=== PATIENT | male | born 1990 | race Caucasian/White ===

== ENCOUNTER 2022-04-24 15:43 | Emergency (ER) | payer BC, MEDICAID ==
[~2022-04-24] VITALS: Ht 177.8 cm; Wt 113.0 kg
[2022-04-24 17:49] VITALS: BP 142/80
== END 2022-04-24 17:50 | disposition home or self-care (01) ==
LOC: ER 15:43
DX: F25.0 Schizoaffective disorder, bipolar type (principal); F17.210 Nicotine dependence, cigarettes, uncomplicated
CPT/HCPCS: 99283

== ENCOUNTER 2022-04-24 18:10 | Emergency (ER) | payer MEDICAID ==
[~2022-04-24] VITALS: Ht 177.8 cm; Wt 136.0 kg
[2022-04-24] MEDS ORDERED: LORAZEPAM 1MG TABLET PO ONE (19:00)
[2022-04-24] MEDS ORDERED: OLANZAPINE 5MG TABLET ODT PO ONE (19:00)
[2022-04-24 19:20] LABS: BASOPHILS % 0.7 % (0.0-2.0); EOSINOPHILS % 3.3 % (0.0-5.0); HEMATOCRIT. 43.8 % (42.0-52.0); HEMOGLOBIN. 14.9 g/dL (14.0-18.0); LYMPHOCYTES % 25.8 % (20.0-50.0); MEAN CORPUSCULAR HEMOGLOBIN 28.6 pg (28.0-32.0); MEAN CORPUSCULAR VOLUME 84.2 fL (80.0-94.0); MEAN PLATELET VOLUME 9.7 fl (7.4-10.4); MONOCYTES % 10.3 % (2.0-8.0); NEUTROPHILS % 59.9 % (40.0-76.0); PLATELET 221 x1000/uL (130-400); RED BLOOD CELL COUNT 5.21 mill/uL (4.7-6.1); RED CELL DISTRIBUTION WIDTH 15.4 % (11.6-14.6)
[2022-04-24 19:48] LABS: CLARITY URINE CLEAR (CLEAR); COLOR URINE YELLOW (YELLOW); KETONES URINE TRACE (NEGATIVE); LEUKOCYTE ESTERASE URINE NEGATIVE (NEGATIVE); NITRITE URINE NEGATIVE (NEGATIVE); OCCULT BLOOD URINE NEGATIVE (NEGATIVE); PH URINE 5.5 (4.5-8.0); PROTEIN URINE NEGATIVE (NEGATIVE); SPECIFIC GRAVITY URINE 1.028 (1.005-1.030)
[2022-04-24 19:48] LABS: CHLORIDE 111 mEq/L (98-107)
[2022-04-24 19:59] LABS: ETHANOL BLOOD < 10 mg/dL
[2022-04-24] MEDS ORDERED: DIPHENHYDRAMINE 50MG/ML VIAL IM ONE (20:00)
[2022-04-24] MEDS ORDERED: LORAZEPAM 2MG/ML CPJ IM ONE (20:00)
[2022-04-24 20:11] LABS: *AMPHETAMINES SCREEN URINE NEGATIVE (NEGATIVE); *BARBITURATES SCREEN URINE NEGATIVE (NEGATIVE); *BENZODIAZEPINES SCREEN URINE NEGATIVE (NEGATIVE); *COCAINE SCREEN URINE NEGATIVE (NEGATIVE); CANNABINOID URINE SCREEN NEGATIVE (NEGATIVE); METHADONE URINE SCREEN NEGATIVE (NEGATIVE); OPIATES URINE SCREEN NEGATIVE (NEGATIVE); PHENCYCLIDINE URINE SCREEN NEGATIVE (NEGATIVE)
[2022-04-24] MEDS ORDERED: ZIPRASIDONE MESYLATE 20MG/VIAL IM ONE (23:30)
[2022-04-25] MEDS: ARIPIPRAZOLE 5MG TABLET PO SCH (10:30)
[2022-04-25] MEDS: BUPROPION HCL 150MG TABLET XL 24HR PO SCH (10:30)
[2022-04-25] MEDS: DIVALPROEX SODIUM 500MG DR TABLET PO SCH ×2 (10:30→20:43)
[2022-04-25] MEDS ORDERED: LORAZEPAM 1MG TABLET PO ONE (11:15)
[2022-04-25] MEDS ORDERED: LORAZEPAM 2MG/ML CPJ IM ONE (20:30)
[2022-04-26] MEDS ORDERED: ZIPRASIDONE MESYLATE 20MG/VIAL IM SCH (02:00)
[2022-04-26] MEDS ORDERED: OLANZAPINE 10 MG/VIAL IM ONE (02:45)
[2022-04-26] MEDS: ARIPIPRAZOLE 5MG TABLET PO SCH (09:16)
[2022-04-26] MEDS: DIVALPROEX SODIUM 500MG DR TABLET PO SCH (09:16)
[2022-04-26] MEDS: BUPROPION HCL 150MG TABLET XL 24HR PO SCH (09:16)
[2022-04-26 15:57] VITALS: BP 128/64
== END 2022-04-26 17:26 | disposition home or self-care (01) ==
LOC: ER 18:10
DX: F25.0 Schizoaffective disorder, bipolar type (principal); R45.851 Suicidal ideations; F17.210 Nicotine dependence, cigarettes, uncomplicated; Z75.1 Person awaiting admission to adequate facility elsewhere; Z20.822 Contact with and (suspected) exposure to COVID-19
CPT/HCPCS: 36415; 80053; 80305; 80307; 80320; 80329; 81003; 85025; 96372; 99291; C9803; J1200; J2060; J3486; J3490; U0003; U0005; G0480